=== PATIENT | female | born 1970 | race Caucasian/White ===

== ENCOUNTER 2016-10-11 11:07 | Emergency (ER) | payer BC ==
[2016-10-11 11:28] VITALS: BP 131/84
--- NOTE | 2016-10-11 12:11 | UC ---
Back Pain HPI - HPI Summary HPI Summary: PT WOKE UP WITH LOW BACK PAIN ~ 1 WK AGO. HAS HAD "ON AND OFF" BACK PAIN X APPROX ONE YR. NO RECALL OF INJURY. TODAY PAIN INCLUDES UPPER BACK AND NECK. Has had muscle spasms left lower back . From changing her daily movements she has now developed right upper back pain as well. No radiating pain. [ End ] - History of Current Complaint Chief Complaint: UCBackPain Stated Complaint: LOW BACK PAIN Time Seen by Provider: 10/11/16 12:05 Hx Obtained From: Patient Hx Last Menstrual Period: years ago ?: No Onset/Duration: Gradual Onset Timing: Constant Severity Initially: Mild Severity Currently: Moderate Back Pain: Is Diffuse Character: Spasmodic, Stiffness Aggravating: Movement Alleviating: Rest Associated Signs And Symptoms: Negative: Weakness, Abdominal Pain, Flank Pain, Bladder Incontinence, Bowel Incontinence Related History: Similar Episode Dx As - Risk Factors AAA Risk Factors: Negative TAD Risk Factors: Negative Cauda Equina Risk Factors: Negative Epidural Abscess Risk Factors: Negative - Allergies/Home Medications Allergies/Adverse Reactions: Allergies Allergy/AdvReac Type Severity Reaction Status Date / Time Sulfa Antibiotics AdvReac Intermediate Vomiting Verified 10/11/16 11:28 Home Medications: Home Medications Ibuprofen TAB* [Motrin TAB* 600 MG] 600 mg PO Q6H PRN 10/11/16 [History Confirmed 10/11/16] PMH/Surg Hx/FS Hx/Imm Hx Previously Healthy: Yes Cardiovascular History Of: Denies: Cardiac Disorders Respiratory History Of: Denies: COPD GI/ History Of: Denies: Ulcer Psychological History Of: Denies: Anxiety - Surgical History Surgical History: Yes Surgery Procedure, Year, and Place: hysterectomy - Family History Known Family History: Positive: None - Social History Occupation: Employed Full-time Lives: With Family Alcohol Use: Occasionally Substance Use Type: None Smoking Status (MU): Light Every Day Tobacco Smoker Type: Cigarettes Amount Used/How Often: 1 CIG PER DAY Length of Time of Smoking/Using Tobacco: 7 yrs ago Have You Smoked in the Last Year: Yes When Did the Patient Quit Smoking/Using Tobacco: 15 YRS Review of Systems Constitutional: Negative Skin: Negative Eyes: Negative ENT: Negative Respiratory: Negative Cardiovascular: Negative Gastrointestinal: Negative Genitourinary: Negative Motor: Negative Neurovascular: Negative Musculoskeletal: Myalgia Neurological: Negative Psychological: Negative All Other Systems Reviewed And Are Negative: Yes Physical Exam Triage Information Reviewed: Yes Appearance: Well-Appearing, No Pain Distress, Well-Nourished Vital Signs: Initial Vital Signs Temp 96 F 10/11/16 11:19 Pulse 63 10/11/16 11:19 Resp 14 10/11/16 11:19 BP 131/84 10/11/16 11:19 Pulse Ox 98 10/11/16 11:19 Vital Signs Reviewed: Yes Eye Exam: Normal ENT Exam: Normal Dental Exam: Normal Neck exam: Normal Neck: Positive: 1 Respiratory Exam: Normal Cardiovascular Exam: Normal Abdominal Exam: Normal Musculoskeletal Exam: Normal Musculoskeletal: Positive: Strength Intact, ROM Intact, No Edema, Other: - right lumbar paraspinal tenderness to palpation L4-5 Neg SLR. Neg sciatica at this time. Neg step offs no midline tenderness Neurological Exam: Normal Psychological Exam: Normal Skin Exam: Normal Back Pain Course/Dx - Course Course Of Treatment: Pain on /off for 1 year. Check Xray . Advised muscle relaxer, NSAIDs prn, start PT and exercises at home as she declined PT script. If Sx persist then go to Ortho. - Differential Dx/Diagnosis Differential Diagnosis/HQI/PQRI: Strain, Sprain Provider Diagnoses: Lumbar spine muscle spasm Discharge - Discharge Plan Condition: Good Disposition: HOME Prescriptions: Cyclobenzaprine (NF) 5 mg PO BID #20 tab Patient Education Materials: Low Back Strain (ED) Referrals: Kassi Pierce MD [Primary Care Provider] - 3 Days
--- NOTE | 2016-10-11 12:44 | RAD ---
INDICATION: Low back and left hip pain. COMPARISON: There are no prior studies available for comparison. TECHNIQUE: 5 views of the lumbar spine were obtained including lateral, oblique, AP and a coned-down lateral view of the lumbar sacral junction. FINDINGS: The vertebra are in normal alignment. No fracture is seen. 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 The remaining disc spaces appear maintained. IMPRESSION: NO EVIDENCE FOR ACUTE FINDING.
== END 2016-10-11 12:47 | disposition home or self-care (01) ==
LOC: UCCORT 11:07
DX: M62.830 Muscle spasm of back (principal); Z88.2 Allergy status to sulfonamides; F17.210 Nicotine dependence, cigarettes, uncomplicated
CPT/HCPCS: 72110; 99212; G0463

== ENCOUNTER 2017-09-09 09:18 | Emergency (ER) | payer BC ==
[2017-09-09 10:32] VITALS: BP 133/93
--- NOTE | 2017-09-09 10:37 | UC ---
Throat Pain/Nasal Dany HPI - HPI Summary HPI Summary: Pt c/o chills, body aches, HESTER, nasal congestion, sinus pressure/pain that has worsened over the last 3 days. - History of Current Complaint Chief Complaint: UCGeneralIllness Stated Complaint: HEAD COLD,SINUS Time Seen by Provider: 09/09/17 10:20 Hx Obtained From: Patient Hx Last Menstrual Period: years ago ?: No Severity: Mild Pain Intensity: 5 Associated Signs & Symptoms: Positive: Sinus Discomfort - Epiglottits Risk Factors Epiglottis Risk Factors: Negative - Allergies/Home Medications Allergies/Adverse Reactions: Allergies Allergy/AdvReac Type Severity Reaction Status Date / Time MS Sulfa Antibiotics AdvReac Intermediate Vomiting Verified 09/09/17 10:28 [Sulfa Antibiotics] Home Medications: Home Medications Phenylephrine-Aspirin [Alvina-Greene Plus Sinus F] 2 tab PO Q4H PRN 09/09/17 [ History Confirmed 09/09/17] PMH/Surg Hx/FS Hx/Imm Hx Previously Healthy: Yes - Surgical History Surgical History: Yes Surgery Procedure, Year, and Place: Hysterectomy, ~[facility], [facility] - Family History Known Family History: Positive: Cardiac Disease - Social History Alcohol Use: Rare Substance Use Type: None Smoking Status (MU): Heavy Every Day Tobacco Smoker Type: Cigarettes Amount Used/How Often: 1/2 PPD Length of Time of Smoking/Using Tobacco: Since Age 18 Have You Smoked in the Last Year: Yes When Did the Patient Quit Smoking/Using Tobacco: 15 YRS Household Exposure Type: Cigarettes - Immunization History Hx Tetanus, Diphtheria Vaccination: No Vaccination Up to Date: Yes Review of Systems Constitutional: Chills, Fatigue Skin: Negative Eyes: Negative ENT: Sinus Congestion, Sinus Pain/Tenderness Respiratory: Negative Cardiovascular: Negative Gastrointestinal: Negative Genitourinary: Negative Motor: Negative Neurovascular: Negative Musculoskeletal: Negative Neurological: Headache Psychological: Negative Is Patient Immunocompromised?: No All Other Systems Reviewed And Are Negative: Yes Physical Exam Triage Information Reviewed: Yes Appearance: Ill-Appearing Vital Signs: Initial Vital Signs Temp 98 F 09/09/17 10:27 Pulse 88 09/09/17 10:27 Resp 16 09/09/17 10:27 BP 133/93 09/09/17 10:27 Pulse Ox 100 09/09/17 10:27 Vital Signs Reviewed: Yes Eye Exam: Normal ENT Exam: Other ENT: Positive: Nasal congestion, Sinus tenderness Dental Exam: Normal Neck exam: Normal Respiratory Exam: Normal Cardiovascular Exam: Normal Musculoskeletal Exam: Normal Neurological Exam: Normal Psychological Exam: Normal Skin Exam: Normal Throat Pain/Nasal Course/Dx - Differential Dx/Diagnosis Differential Diagnosis/HQI/PQRI: Influenza, Sinusitis, URI Provider Diagnoses: sinusitis Discharge - Discharge Plan Condition: Stable Disposition: HOME Prescriptions: Amoxicillin PO (*) [Amoxicillin 875 MG (*)] 875 mg PO Q12H #20 tab Cetirizine-Pseudoephedrine [Zyrtec-D Allergy/Congesti] 1 tab PO DAILY #10 tab Fluconazole [Diflucan 150 MG (NF)] 150 mg PO ONCE #2 tab Patient Education Materials: Sinusitis (ED) Referrals: [facility] [Outside] No Primary Care Phys,NOPCP [Primary Care Provider] - Additional Instructions: Please follow up with your PCP or return to clinic as needed.
== END 2017-09-09 10:44 | disposition home or self-care (01) ==
LOC: UCCORT 09:18
DX: J32.9 Chronic sinusitis, unspecified (principal); F17.210 Nicotine dependence, cigarettes, uncomplicated
CPT/HCPCS: 99212; G0463

== ENCOUNTER 2017-12-09 15:54 | Emergency (ER) | payer BC ==
[2017-12-09 16:02] VITALS: BP 121/77
--- NOTE | 2017-12-09 17:34 | UC ---
Dizzy HPI HPI Summary: Pt c/o onset of intermittent dizziness, that began 1 week ago. Pt denies URI like symptoms, HESTER, injury, fever, chills. Pt also c/o upper anterior chest pain that is intermittent that began 1 month ago. 3. Pt c/o "sore" on left posterior tricep that she drained last night and is concerned that it was infected. - History Of Current Complaint Hx Obtained From: Patient Hx Last Menstrual Period: years ago ?: No Onset/Duration: Gradual Onset, Lasting Days, Still Present Timing: Intermittent Episode Lasting Severity Initially: Mild Severity Currently: None Pain Intensity: 0 Pain Scale Used: 0-10 Numeric Character: Lightheaded, Dizzy Aggravating Factor(s): Nothing Alleviating Factor(s): Nothing Associated Signs And Symptoms: Positive: Negative - Risk Factors Cardiac Risk Factors: Negative CVA Risk Factor: Negative <Daphne Felipe NP - Last Filed: 12/09/17 17:29> <Jacque Walker - Last Filed: 12/09/17 20:23> - History Of Current Complaint Chief Complaint: UCGeneralIllness Stated Complaint: DIZZYNESS/CHEST PAIN(1MONTH)/SKIN COMP Time Seen by Provider: 12/09/17 16:46 - Allergies/Home Medications Allergies/Adverse Reactions: Allergies Allergy/AdvReac Type Severity Reaction Status Date / Time Sulfa (Sulfonamide Allergy Vomiting Verified 12/09/17 16:02 Antibiotics) PMH/Surg Hx/FS Hx/Imm Hx Previously Healthy: Yes - Surgical History Surgical History: Yes Surgery Procedure, Year, and Place: Hysterectomy, [facility] - Family History Known Family History: Positive: None, Cardiac Disease - Social History Occupation: Employed Full-time Lives: With Family Alcohol Use: Rare Substance Use Type: None Smoking Status (MU): Heavy Every Day Tobacco Smoker Type: Cigarettes Amount Used/How Often: 1/2 PPD Length of Time of Smoking/Using Tobacco: Since Age 18 Have You Smoked in the Last Year: Yes When Did the Patient Quit Smoking/Using Tobacco: 15 YRS Household Exposure Type: Cigarettes - Immunization History Hx Tetanus, Diphtheria Vaccination: No Vaccination Up to Date: Yes <Daphne Felipe NP - Last Filed: 12/09/17 17:29> Review of Systems Constitutional: Negative Skin: Negative Eyes: Negative ENT: Negative Respiratory: Negative Cardiovascular: Negative Gastrointestinal: Negative Genitourinary: Negative Motor: Negative Neurovascular: Negative Musculoskeletal: Negative Neurological: Negative Psychological: Negative Is Patient Immunocompromised?: No All Other Systems Reviewed And Are Negative: Yes <Daphne Felipe NP - Last Filed: 12/09/17 17:29> Physical Exam Triage Information Reviewed: Yes Appearance: Well-Appearing Vital Signs: Initial Vital Signs Temp 98.7 F 12/09/17 15:57 Pulse 89 12/09/17 15:57 Resp 18 12/09/17 15:57 BP 121/77 12/09/17 15:57 Pulse Ox 100 12/09/17 15:57 Vital Signs Reviewed: Yes Eye Exam: Normal ENT Exam: Normal ENT: Positive: TM bulging - right TM slight bulging, left ear canal filled with cerumen, Neck exam: Normal Respiratory Exam: Normal Cardiovascular Exam: Normal Abdominal Exam: Normal Musculoskeletal Exam: Normal Neurological Exam: Normal Psychological Exam: Normal Skin Exam: Other - left posterior upper tricep no erythema, no palpable mass <Daphne Felipe NP - Last Filed: 12/09/17 17:29> Vital Signs: Initial Vital Signs Temp 98.7 F 12/09/17 15:57 Pulse 89 12/09/17 15:57 Resp 18 12/09/17 15:57 BP 121/77 12/09/17 15:57 Pulse Ox 100 12/09/17 15:57 <Jacque Walker - Last Filed: 12/09/17 20:23> Dizzy Course/Dx - Differential Dx/Diagnosis Differential Diagnosis/HQI/PQRI: Benign Paroxysmal Positional Vertigo, Other - dizziness Provider Diagnoses: dizziness. chest pain <Daphne Felipe NP Last Filed: 12/09/17 17:29> Discharge - Sign-Out/Discharge Documenting (check all that apply): Discharge/Admit/Transfer - Billing Disposition and Condition Condition: STABLE Disposition: HOME <Daphne Felipe NP - Last Filed: 12/09/17 17:29> - Billing Disposition and Condition Condition: STABLE Disposition: HOME <Jacque Walker - Last Filed: 12/09/17 20:23> - Discharge Plan Condition: Stable Disposition: HOME Prescriptions: Cetirizine* [ZyrTEC 10 MG TAB*] 10 mg PO DAILY #10 tab Meclizine TAB* [Antivert 12.5 TAB*] 12.5 mg PO Q8H PRN #12 tab PRN Reason: Dizziness Patient Education Materials: Dizziness (ED) Referrals: No Primary Care Phys,NOPCP [Primary Care Provider] - If Needed Attestation Statement User Type: Provider - I was available for consult. This patient was seen by the JUAN. The patient was not presented to, seen by, or examined by me. -Doug <Jacque Walker - Last Filed: 12/09/17 20:23>
== END 2017-12-09 17:00 | disposition home or self-care (01) ==
LOC: UCCORT 15:54
DX: R42 Dizziness and giddiness (principal); R07.9 Chest pain, unspecified; F17.210 Nicotine dependence, cigarettes, uncomplicated; Z88.2 Allergy status to sulfonamides
CPT/HCPCS: 99212; G0463

== ENCOUNTER 2018-12-31 10:11 | Emergency (ER) | payer BC ==
[2018-12-31 11:00] VITALS: BP 116/82
--- NOTE | 2018-12-31 11:14 | UC ---
Respiratory Complaint HPI - HPI Summary HPI Summary: 48 yo female with cough (prdoctive ) x 1-2 weeks smoker no f/c no CP or sob - History of Current Complaint Chief Complaint: UCGeneralIllness Stated Complaint: CHEST CONGESTION, COUGH Time Seen by Provider: 12/31/18 11:04 Hx Obtained From: Patient Hx Last Menstrual Period: years ago Onset/Duration: Sudden Onset Timing: Constant Severity Initially: Mild Severity Currently: Moderate Pain Intensity: 0 Pain Scale Used: 0-10 Numeric Character: Cough: Productive Aggravating Factors: Deep Breaths Alleviating Factors: Nothing Associated Signs And Symptoms: Positive: Wheezing, Nasal Congestion Related History: Similar Episode/Dx as: - Bronchitis - Allergies/Home Medications Allergies/Adverse Reactions: Allergies Allergy/AdvReac Type Severity Reaction Status Date / Time Sulfa (Sulfonamide Allergy Vomiting Verified 12/31/18 11:01 Antibiotics) Home Medications: Home Medications Guaifenesin/Dextromethorphan [Mucinex Dm ER 600-30 mg Tablet] 1 tab PO Q12H [History Confirmed 12/31/18] PMH/Surg Hx/FS Hx/Imm Hx Previously Healthy: Yes Respiratory History: Bronchitis - Surgical History Surgical History: Yes Surgery Procedure, Year, and Place: Hysterectomy, ~[facility], [facility] - Family History Known Family History: Positive: Cardiac Disease, Hypertension - Social History Alcohol Use: Rare Substance Use Type: None Smoking Status (MU): Heavy Every Day Tobacco Smoker Type: Cigarettes Amount Used/How Often: 1/2 PPD Length of Time of Smoking/Using Tobacco: Since Age 18 Have You Smoked in the Last Year: Yes When Did the Patient Quit Smoking/Using Tobacco: 15 YRS Household Exposure Type: Cigarettes - Immunization History Hx Tetanus, Diphtheria Vaccination: No Vaccination Up to Date: Yes Review of Systems All Other Systems Reviewed And Are Negative: Yes Constitutional: Positive: Negative Skin: Positive: Negative Eyes: Positive: Negative ENT: Positive: Negative Respiratory: Positive: Cough Cardiovascular: Positive: Negative Gastrointestinal: Positive: Negative Genitourinary: Positive: Negative Motor: Positive: Negative Neurovascular: Positive: Negative Musculoskeletal: Positive: Negative Neurological: Positive: Negative Psychological: Positive: Negative Physical Exam Triage Information Reviewed: Yes Appearance: Well-Appearing, No Pain Distress, Well-Nourished Vital Signs: Initial Vital Signs Temp 97.8 F 12/31/18 10:54 Pulse 82 12/31/18 10:54 Resp 18 12/31/18 10:54 BP 116/82 12/31/18 10:54 Pulse Ox 95 12/31/18 10:54 Eyes: Positive: Conjunctiva Clear ENT: Positive: Hearing grossly normal, Pharyngeal erythema, Nasal congestion, TMs normal, Uvula midline. Negative: Nasal drainage, Tonsillar swelling, Tonsillar exudate, Trismus, Muffled voice, Hoarse voice, Sinus tenderness Neck: Positive: Supple, Nontender Respiratory: Positive: No respiratory distress, No accessory muscle use, Wheezing Cardiovascular: Positive: RRR Musculoskeletal: Positive: ROM Intact, No Edema Neurological: Positive: Alert Psychological Exam: Normal Skin Exam: Normal Diagnostics - Radiology No standard instances Radiology Interpretation Completed By: Radiologist Summary of Radiographic Findings: NAD Respiratory Course/Dx - Differential Dx/Diagnosis Provider Diagnosis: Bronchitis, acute, with bronchospasm Discharge - Sign-Out/Discharge Documenting (check all that apply): Patient Departure All imaging exams completed and their final reports reviewed: Yes - Discharge Plan Condition: Stable Disposition: HOME Prescriptions: Albuterol 2.5MG/3ML (0.083%)* [Ventolin 2.5 MG/3 ML NEB.MARIO*] 2.5 mg INH QID PRN #1 [email or web address] PRN Reason: Wheezing Amoxicillin PO (*) [Amoxicillin 875 MG (*)] 875 mg PO BID #14 tab predniSONE [Deltasone 20 MG TAB] 40 mg PO DAILY #10 tab Patient Education Materials: Acute Bronchitis (ED) Referrals: Madhu SALAZAR,Vonnie Cruz [Primary Care Provider] - 4 Days (if not better) - Billing Disposition and Condition Condition: STABLE Disposition: Home
== END 2018-12-31 11:52 | disposition home or self-care (01) ==
LOC: UCCORT 10:11
DX: J20.9 Acute bronchitis, unspecified (principal); Z88.2 Allergy status to sulfonamides; F17.210 Nicotine dependence, cigarettes, uncomplicated
CPT/HCPCS: 71046; 99212; G0463

== ENCOUNTER 2019-03-05 11:57 | Emergency (ER) | payer BC ==
[2019-03-05 12:16] VITALS: BP 135/78
--- NOTE | 2019-03-05 12:19 | UC ---
Back Pain HPI - HPI Summary HPI Summary: Pt's dog pulled her about 3-4 days ago and the next day she started having some left lower back pain. Denies any saddle anesthesia and no numbness or tingling in extremities. No difficulty urinating. - History of Current Complaint Chief Complaint: UCBackPain Stated Complaint: LOWER BACK PAIN Time Seen by Provider: 03/05/19 12:09 Hx Obtained From: Patient Hx Last Menstrual Period: years ago ?: No Onset/Duration: Sudden Onset Timing: Intermittent - Worse with movement Severity Initially: Moderate Severity Currently: Mild - Pt moves slowly but without much difficulty and no expression of pain when getting up on exam table. Pain Intensity: 10 Aggravating Factor(s): Movement, Lifting, Bending Alleviating Factor(s): Rest Associated Signs And Symptoms: Positive: Negative. Negative: Weakness, Numbness , Tingling, Abdominal Pain, Flank Pain, Bladder Incontinence, Bowel Incontinence - Allergies/Home Medications Allergies/Adverse Reactions: Allergies Allergy/AdvReac Type Severity Reaction Status Date / Time Sulfa (Sulfonamide Allergy Vomiting Verified 12/31/18 11:01 Antibiotics) Home Medications: Home Medications Acetaminophen [Acetaminophen ER] 650 mg PO ONCE PRN 03/05/19 [History Confirmed 03/05/19] Ibuprofen TAB* [Advil TAB*] 200 mg PO Q6H PRN 03/05/19 [History Confirmed ] PMH/Surg Hx/FS Hx/Imm Hx Previously Healthy: Yes - Surgical History Surgical History: Yes Surgery Procedure, Year, and Place: Hysterectomy, ~[address] [place] [address] - Family History Known Family History: Positive: None, Cardiac Disease, Hypertension - Social History Lives: With Family Alcohol Use: Rare Substance Use Type: None Smoking Status (MU): Heavy Every Day Tobacco Smoker Type: Cigarettes Amount Used/How Often: 1/2 PPD Length of Time of Smoking/Using Tobacco: Since Age 18 Have You Smoked in the Last Year: Yes When Did the Patient Quit Smoking/Using Tobacco: 15 YRS Household Exposure Type: Cigarettes - Immunization History Hx Tetanus, Diphtheria Vaccination: No Vaccination Up to Date: Yes Review of Systems All Other Systems Reviewed And Are Negative: Yes Motor: Positive: Negative Neurovascular: Positive: Negative Musculoskeletal: Positive: Other: - Pain left lower back, does not shoot down leg Is Patient Immunocompromised?: No Physical Exam Triage Information Reviewed: Yes Appearance: Well-Appearing, No Pain Distress, Well-Nourished Vital Signs: Initial Vital Signs Temp 97.6 F 03/05/19 12:11 Pulse 64 03/05/19 12:11 Resp 16 03/05/19 12:11 BP 135/78 03/05/19 12:11 Pulse Ox 100 03/05/19 12:11 Vital Signs Reviewed: Yes Respiratory: Positive: Lungs clear, Normal breath sounds, No respiratory distress, No accessory muscle use Cardiovascular: Positive: RRR, No Murmur, Pulses Normal, Brisk Capillary Refill Abdomen Description: Positive: Nontender, No Organomegaly, Soft. Negative: CVA Tenderness (R), CVA Tenderness (L) Bowel Sounds: Positive: Present Musculoskeletal: Positive: Strength Intact, ROM Intact, No Edema, Other: - mild pain left lower back with movement Neurological: Positive: Alert, Muscle Tone Normal, Other: - Reflexes +2 at the knees. Negative Straight leg raise, good arm and leg strength against resistance , full ROM Psychological Exam: Normal Skin Exam: Normal Back Pain Course/Dx - Course Course Of Treatment: Pt comfortable here. Will give a few days off work, muscle relaxant and follow up with PCP on Thursday if no improvement - Differential Dx/Diagnosis Provider Diagnosis: Low back strain Discharge - Sign-Out/Discharge Documenting (check all that apply): Patient Departure All imaging exams completed and their final reports reviewed: No Studies - Discharge Plan Condition: Fair Disposition: HOME Prescriptions: Cyclobenzaprine TAB* [Flexeril 10 MG TAB*] 10 mg PO TID PRN #15 tab PRN Reason: Pain Patient Education Materials: Low Back Strain (ED) Forms: *Work Release Referrals: Vonnie Leung PA [Primary Care Provider] - Additional Instructions: Avoid movements that cause pain. No operating machinery, driving or drinking alcohol while taking the muscle relaxant. Follow up with your primary care provider if no improvement in 2-3 days. - Billing Disposition and Condition Condition: FAIR Disposition: Home
== END 2019-03-05 12:35 | disposition home or self-care (01) ==
LOC: UCCORT 11:57
DX: S39.012A Strain of muscle, fascia and tendon of lower back, initial encounter (principal); X58.XXXA Exposure to other specified factors, initial encounter; Y93.9 Activity, unspecified; Y92.9 Unspecified place or not applicable; F17.210 Nicotine dependence, cigarettes, uncomplicated
CPT/HCPCS: 99212; G0463

== ENCOUNTER 2019-04-16 08:48 | Emergency (ER) | payer BC ==
[2019-04-16 09:28] VITALS: BP 132/78
--- NOTE | 2019-04-16 10:04 | UC ---
Respiratory Complaint HPI - HPI Summary HPI Summary: Pt presents with c/o worsening chest congestion, cough and wheezing. Pt is a heavy everyday smoker and states that she had URI like symptoms that have now "gone to her chest". Pt states that her was diagnosed with pneumonia last week. - History of Current Complaint Chief Complaint: UCRespiratory Stated Complaint: RUNNY NOSE CONGESTION Time Seen by Provider: 04/16/19 09:51 Hx Obtained From: Patient Hx Last Menstrual Period: years ago ?: No Onset/Duration: Gradual Onset, Lasting Days - 7, Still Present, Worse Since - onset Timing: Constant Severity Initially: Mild Severity Currently: Moderate Pain Intensity: 0 Character: Cough: Nonproductive Aggravating Factors: Exertion, Deep Breaths, Recumbent Position Alleviating Factors: Nothing Associated Signs And Symptoms: Positive: Wheezing, URI, Nasal Congestion - Risk Factors Pulmonary Embolism Risk Factors: Smoking Cardiac Risk Factors: Smoking Pseudomonas Risk Factors: Negative Tuberculosis Risk Factors: Smoking - Allergies/Home Medications Allergies/Adverse Reactions: Allergies Allergy/AdvReac Type Severity Reaction Status Date / Time Sulfa (Sulfonamide Allergy Vomiting Verified 04/16/19 09:28 Antibiotics) Home Medications: Home Medications D-Methorphan/PE/Acetaminophen [Vicks Dayquil Liquicaps] 1 dose PO PRN 04/16/19 [ History] guaiFENesin [Mucinex] 600 mg PO PRN 04/16/19 [History] PMH/Surg Hx/FS Hx/Imm Hx Previously Healthy: Yes - Surgical History Surgical History: Yes Surgery Procedure, Year, and Place: Hysterectomy, ~[address] [place] [address] - Family History Known Family History: Positive: Cardiac Disease, Hypertension - Social History Occupation: Employed Full-time Lives: With Family Alcohol Use: Rare Substance Use Type: None Smoking Status (MU): Heavy Every Day Tobacco Smoker Type: Cigarettes Amount Used/How Often: 1/2 PPD Length of Time of Smoking/Using Tobacco: Since Age 18 Have You Smoked in the Last Year: Yes When Did the Patient Quit Smoking/Using Tobacco: 15 YRS Household Exposure Type: Cigarettes - Immunization History Hx Tetanus, Diphtheria Vaccination: No Vaccination Up to Date: Yes Review of Systems All Other Systems Reviewed And Are Negative: Yes Constitutional: Positive: Fatigue Skin: Positive: Negative Eyes: Positive: Negative ENT: Positive: Negative Respiratory: Positive: Cough Cardiovascular: Positive: Negative Gastrointestinal: Positive: Negative Genitourinary: Positive: Negative Motor: Positive: Negative Neurovascular: Positive: Negative Musculoskeletal: Positive: Negative Neurological: Positive: Negative Psychological: Positive: Negative Is Patient Immunocompromised?: No Physical Exam Triage Information Reviewed: Yes Appearance: Ill-Appearing Vital Signs: Initial Vital Signs Temp 98.4 F 04/16/19 09:22 Pulse 85 04/16/19 09:22 Resp 18 04/16/19 09:22 BP 132/78 04/16/19 09:22 Pulse Ox 100 04/16/19 09:22 Vital Signs Reviewed: Yes Eye Exam: Normal ENT: Positive: Nasal congestion Dental Exam: Normal Neck exam: Normal Respiratory: Positive: Decreased breath sounds Cardiovascular Exam: Normal Musculoskeletal Exam: Normal Neurological Exam: Normal Psychological Exam: Normal Skin Exam: Normal Respiratory Course/Dx - Differential Dx/Diagnosis Differential Diagnosis/HQI/PQRI: Bronchitis, Influenza Provider Diagnosis: Bronchitis Discharge ED - Sign-Out/Discharge Documenting (check all that apply): Patient Departure All imaging exams completed and their final reports reviewed: No Studies - Discharge Plan Condition: Stable Disposition: HOME Prescriptions: Azithromycin TAB* [Zithromax TAB (Z-JAYANT) 250 mg #6 tabs] 2 tab PO .TODAY, THEN 1 DAILY #1 jayant Benzonatate CAP* [Tessalon 100 MG CAP*] 100 mg PO Q8H PRN #30 cap PRN Reason: Cough Cetirizine* [ZyrTEC 10 MG TAB*] 10 mg PO DAILY #10 tab predniSONE TAB* [Deltasone 10 MG TAB*] 30 mg PO DAILY #9 tab Patient Education Materials: Acute Bronchitis (ED) Referrals: Vonnie Leung PA [Primary Care Provider] - If Needed - Billing Disposition and Condition Condition: STABLE Disposition: Home
== END 2019-04-16 10:13 | disposition home or self-care (01) ==
LOC: UCCORT 08:48
DX: J40 Bronchitis, not specified as acute or chronic (principal); Z88.2 Allergy status to sulfonamides; Z87.891 Personal history of nicotine dependence
CPT/HCPCS: 99212; G0463